=== PATIENT | female | born 1975 ===

== ENCOUNTER 2017-07-08 06:28 | Day surgery (SDC) | payer MEDICAID, OTHER ==
[2017-07-08] MEDS ORDERED: ceFAZolin IV 2 gm in Dextrose 2 GM/50 ML BAG IVPB ONE (08:52)
[2017-07-08] MEDS ORDERED: Lactated Ringer's 1,000 ML IV ONE (10:08)
[2017-07-08] MEDS ORDERED: Midazolam 2 MG/2 ML VIAL ONE (10:11)
[2017-07-08] MEDS ORDERED: Propofol 10 mg/ml Inj (20 ML) ONE (10:11)
[2017-07-08] MEDS: Bupivacaine-Epi 0.25%-1:200,000 PF Inj ONE ×2 (10:30→10:53)
[2017-07-08] MEDS: Lidocaine 1% Inj (20ml) ONE ×2 (10:30→10:53)
[2017-07-08] MEDS ORDERED: HYDROmorphone 0.5 mg/0.5 ml ISec IVP PRN ×2 (10:39→11:20)
--- NOTE | 2017-07-08 11:22 | PCM.SURG1 ---
Surgeon's Initial Post Op Note - Surgeon's Notes Surgeon: [employer]i [employer] Builder: Surendra PGY1, Mago MS3 Type of Anesthesia: General LMA Pre-Operative Diagnosis: Left Breast Sebaceous cyst Operative Findings: see operative report Post-Operative Diagnosis: same Operation Performed: Excision of left breast sebaceous cyst Specimen/Specimens Removed: Sebaceous cyst wall Estimated Blood Loss: EBL {In ML}: 10 Blood Products Given: N/A Drains Used: No Drains Post-Op Condition: Good Date of Surgery/Procedure: 07/08/17 Time of Surgery/Procedure: 11:21
[2017-07-08 12:55] VITALS: RESP 16
[2017-07-08 13:31] VITALS: BP 109/66; PULSE 72; TEMP 97.3; O2SAT 100
--- NOTE | 2017-07-08 20:16 | OP ---
PROCEDURE DATE: 07/08/2017 07/08/2017PREOPERATIVE DIAGNOSIS: Sebaceous cyst of the left breast. POSTOPERATIVE DIAGNOSIS: Sebaceous cyst of the left breast. PROCEDURES: 1. Excision of sebaceous cyst of the left breast, approximately 5 x 4 cm in size. 2. Layer closure of the wound. TYPE OF ANESTHESIA: General anesthesia with LMA. ESTIMATED BLOOD LOSS: Around 10 mL. DRAINS: None. PATHOLOGY: The sebaceous cyst was sent for the pathology. COMPLICATIONS: None. INTRAOPERATIVE FINDINGS: The patient had approximately irregular shape 5 x 4 cm large sebaceous cyst of the left breast. DESCRIPTION OF PROCEDURE: On intraoperative steps, this 42-year-old female who was diagnosed with sebaceous cyst of the left breast and the patient was consented for the excision of the sebaceous cyst, brought to the OR and placed supine on the operating table. After induction of the anesthesia, the left breast was prepped and draped in usual sterile fashion. The elliptical shape incision was made. After incising skin and subcutaneous tissue, the upper and lower flap was created. The medial and lateral dissection was done and sebaceous cyst was completely excised from underlying breast tissue and it was sent to the table for the pathology. Now, overlying skin was very thinned out and the re-fashioning of the upper and lower skin flap was done after removing excess skin and the multiple layer closure was done. The subcu with multiple 2-0 Vicryl and the skin with a 4-0 Monocryl and dry sterile dressing was applied. The patient tolerated the procedure well. Count of the instrument and gauze was correct. There was no apparent complication. Yefri Keyes MD [facility]
== END 2017-07-08 13:25 | disposition home or self-care (01) ==
LOC: C.SDS 06:28
PROVIDERS: ATTEND Surgery Surgical Critical Care
DX: L72.0 Epidermal cyst (principal); E11.9 Type 2 diabetes mellitus without complications
CPT/HCPCS: 11406; 12032; 82948; 88304; J0690; J2250; J2704; J3010; J7120